=== PATIENT | male | born 1945 | race Caucasian/White ===

== ENCOUNTER 2017-02-24 23:55 | Emergency (ER) | payer MEDICARE, OTHER ==
[~2017-02-24 23:55] MED LIST: ACETAMINOPHEN; ASPIRIN; AVANDIA; GLUCOPHAGE XR500 MG; LISINOPRIL; ZOCOR; ZOLOFT
== END 2017-02-25 04:04 | disposition left against medical advice (07) ==
LOC: CED 23:55
DX: R04.0 Epistaxis (principal); E11.9 Type 2 diabetes mellitus without complications; I10 Essential (primary) hypertension
CPT/HCPCS: 99283